=== PATIENT | female | born 1990 | race African-American/Black ===

== ENCOUNTER 2016-05-15 04:16 | Emergency (ER) | payer OTHER ==
[~2016-05-15] VITALS: Ht 160 cm; Wt 56.4 kg
[2016-05-15 05:38] VITALS: BP 117/71
[2016-09-17] MEDS ORDERED: ACYC200C PO (11:27)
[2016-09-17] MEDS ORDERED: PERCT PO (11:28)
[2016-09-17] MEDS ORDERED: DSS100 PO (11:29)
[2016-09-17] MEDS ORDERED: TRIA15CR45 TP (11:29)
== END 2016-05-15 06:08 | disposition home or self-care (01) ==
LOC: EMS 04:18
DX: S09.93XA Unspecified injury of face, initial encounter (principal); J45.909 Unspecified asthma, uncomplicated; F12.90 Cannabis use, unspecified, uncomplicated; Y08.89XA Assault by other specified means, initial encounter; Y93.89 Activity, other specified; Y92.89 Other specified places as the place of occurrence of the external cause; Y99.8 Other external cause status
CPT/HCPCS: 70450; 70486; 99284

== ENCOUNTER 2016-09-07 09:56 | Emergency (ER) | payer OTHER ==
[~2016-09-07] VITALS: Ht 160 cm; Wt 59.0 kg
[2016-09-07] MEDS ORDERED: ACETAMINOPHEN 500 MG TABLET PO ONE (10:30)
[2016-09-07 12:20] VITALS: BP 118/68
== END 2016-09-07 12:33 | disposition home or self-care (01) ==
LOC: EMS 09:58
DX: B01.9 Varicella without complication (principal); J45.909 Unspecified asthma, uncomplicated
CPT/HCPCS: 99283

== ENCOUNTER 2016-09-09 07:04 | Emergency (ER) | payer OTHER ==
[~2016-09-09] VITALS: Ht 160 cm; Wt 59.0 kg
[2016-09-09 07:24] VITALS: BP 132/79
[2016-09-09] MEDS ORDERED: BENZOCAINE 20% 50 MCG/SPRAY 57 GM TP ONE (07:30)
[2016-09-09] MEDS ORDERED: KETOROLAC TROMETHAMINE 60 MG/2 ML VIAL IM ONE (07:30)
== END 2016-09-09 08:01 | disposition home or self-care (01) ==
LOC: EMS 07:05
DX: B01.9 Varicella without complication (principal); J45.909 Unspecified asthma, uncomplicated
CPT/HCPCS: 96372; 99283; J1885